=== PATIENT | male | born 1980 | race American Indian/Alaskan Native ===

== ENCOUNTER 2021-10-24 15:06 | Emergency (ER) | payer OTHER ==
[2021-10-24] MEDS ORDERED: HYDROcodone/ACETAMINOPHEN 5-325 MG TAB PO ONE (16:33)
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
[2021-10-24 18:35] VITALS: BP 140/80
== END 2021-10-24 18:34 | disposition home or self-care (01) ==
LOC: ED 15:06
DX: S40.012A Contusion of left shoulder, initial encounter (principal); M25.572 Pain in left ankle and joints of left foot; M25.562 Pain in left knee; X58.XXXA Exposure to other specified factors, initial encounter; Y93.89 Activity, other specified; Y92.89 Other specified places as the place of occurrence of the external cause; Y99.8 Other external cause status
CPT/HCPCS: 99283